=== PATIENT | male | born 1945 | race Caucasian/White ===

== ENCOUNTER 2017-11-12 16:58 | Emergency (ER) | payer OTHER, BC ==
[~2017-11-12] VITALS: Ht 177.8 cm; Wt 97.0 kg
[2017-11-12] MEDS ORDERED: PERCOCET 5/31 TABLET PO (22:26)
[2017-11-12 23:02] VITALS: BP 151/87
== END 2017-11-12 23:03 | disposition home or self-care (01) ==
LOC: EME 16:58
PROC: 2W39X1Z Immobilization of Left Upper Extremity using Splint (ICD-10-PCS; principal; 2017-11-12)
DX: S52.502A Unspecified fracture of the lower end of left radius, initial encounter for closed fracture (principal); S62.323A Displaced fracture of shaft of third metacarpal bone, left hand, initial encounter for closed fracture; M79.641 Pain in right hand; M79.601 Pain in right arm; V43.52XA Car driver injured in collision with other type car in traffic accident, initial encounter; Y92.410 Unspecified street and highway as the place of occurrence of the external cause
CPT/HCPCS: 71046; 73060; 73090; 73130; 73200; 99281; 99284